=== PATIENT | female | born 1995 | race Two or more races ===

== ENCOUNTER 2023-04-30 21:03 | Emergency (ER) | payer OTHER ==
[~2023-04-30] VITALS: Ht 160 cm; Wt 97.5 kg
[2023-05-01] MEDS ORDERED: MECLIZINE HCL25 M1 PO (04:21)
== END 2023-05-01 04:30 | disposition home or self-care (01) ==
LOC: ER 21:03
DX: R42 Dizziness and giddiness (principal)